=== PATIENT | female | born 1970 | race African-American/Black ===

== ENCOUNTER 2017-03-22 09:02 | Emergency (ER) | payer SELFPAY ==
[~2017-03-22 09:02] MED LIST: ISOVUE-370 76%-LOCM 1 ML ONE
[2017-03-22 09:44] LABS: #Basophils 0.2 thou/uL (0.0-0.2); #Eosinphils 0.6 thou/uL (0.0-0.7); #Lymphocytes 0.9 thou/uL (1.20-3.40); #Monocytes 0.5 thou/uL (0.11-0.59); #Neutrophils 6.4 thou/uL (1.40-6.50); %Basophils 1.8 % (0.0-1.0); %Eosinophils 6.6 % (0.0-10.0); %Lymphocytes 10.6 % (21.0-51.0); %Monocytes 6.1 % (0.0-10.0); %Neutrophils 74.9 % (42.0-75.0); Hemoglobin 11.8 g/dL (12.0-16.0); Mean Corpuscular HGB CONC 32.6 g/dL (32.0-36.0); Mean Corpuscular Hemoglobin 27.6 pg (27.0-31.0); Mean Corpuscular Volume 84.7 fl (81.0-99.0); Mean Platelet Volume 9.7 fL (7.4-10.4); Platelet Count 262 thou/uL (130-400); RBC Distribution Width 14.2 % (11.5-14.5); Red Blood Cell (RBC) Count 4.29 mill/uL (4.20-5.40); White Blood Cell (WBC) Count 8.5 thou/uL (4.8-10.8)
[2017-03-22 10:08] LABS: ALT (SGPT) 25 U/L (8-55); AST (SGOT) 47 U/L (5-34); Albumin 3.6 g/dL (3.5-5.0); Alkaline Phosphatase 79 U/L (40-150); Anion Gap 12 mmol/L (10-20); BUN (Urea Nitrogen) 6 mg/dL (7.0-18.7); Bilirubin, Total 0.4 mg/dL (0.2-1.2); Calc. Creatinine Clearance 0 mL/min (70-130); Calcium 9.5 mg/dL (7.8-10.44); Carbon Dioxide 25 mmol/L (22-29); Chloride 103 mmol/L (98-107); Estimated GFR-MDRD 80; Globulin 5.8 g/dL (2.4-3.5); Glucose 120 mg/dL (70-105); Potassium 3.7 mmol/L (3.5-5.1); Protein, Total 9.4 g/dL (6.0-8.3); Sodium 136 mmol/L (136-145)
[2017-03-22 10:13] LABS: CKMB 0.4 ng/mL (0-6.6); Troponin I Less than 0.010 ng/mL (< 0.028)
[2017-03-22] MEDS ORDERED: Albuterol Sulfate 2.5 mg/3 ml Neb ONE (10:36)
--- NOTE | 2017-03-22 11:13 | RAD ---
PORTABLE CHEST: HISTORY: Cough. COMPARISON: 02/22/16. FINDINGS: Heart size is upper normal. There is infiltrate seen in the left upper and mid lung and also in the right mid and lower lung. However, these infiltrates do not appear significantly changed from the exam. IMPRESSION: Persistent bilateral infiltrates not significantly changed. POS: [facility]
[2017-03-22] MEDS ORDERED: Azithromycin 500 MG in Sodium Chloride 0.9% 250 ML 250 ML IVPB SCH (11:30)
[2017-03-22] MEDS ORDERED: Cefepime 2 GM, Syringe 2.5 ML in Sterile Water 10 ML SLOW IVP SCH (11:45)
[2017-03-22] MEDS ORDERED: Cefepime 2 GM/10 ML SYR ONE ×2 (11:46→11:53)
[2017-03-22] MEDS ORDERED: CEFAZOLIN/Water 2 GM/20 ML SYRINGE ONE (11:54)
--- NOTE | 2017-03-22 12:52 | CT ---
CT CHEST WITH CONTRAST: TECHNIQUE: Multiple axial tomograms were obtained through the chest with IV enhancement. HISTORY: Cough. Flu-like symptoms. COMPARISON: Comparison is made to portable chest from earlier today which showed evidence of bilateral infiltrate s. FINDINGS: CT chest demonstrates diffuse patchy areas of ground-glass opacity throughout both lungs and is consi stent with diffusely bilateral inflammatory process. No effusion. No consolidation. The mediastinum shows adenopathy with enlarged mediastinal and hilar lymph nodes. A carinal lymph no de is measured at 2.3 cm. Paratracheal lymph node measures up to 1.6 cm. There are other lymph node s seen in the paratracheal and AP window regions. Images through the upper abdomen. Unremarkable. IMPRESSION: Diffuse bilateral alveolar infiltrates with associated mediastinal and hilar adenopathy. POS: [facility]
--- NOTE | 2017-04-26 17:33 | EKG ---
Test Reason : Blood Pressure : / mmHG Vent. Rate : 086 BPM Atrial Rate : 086 BPM P-R Int : 134 ms QRS Dur : 076 ms QT Int : 384 ms P-R-T Axes : 026 047 000 degrees QTc Int : 459 ms Normal sinus rhythm Possible Left atrial enlargement Septal infarct , age undetermined Abnormal ECG Confirmed by WILBER BARRIGA ([id number]), film or videotape editor MARY BROWNLEE ([id number] on 04/26/2017 5:33:02 PM Referred By: Confirmed By:WILBER BARRIGA
== END 2017-03-22 14:36 | disposition home or self-care (01) ==
LOC: ERS 09:02
DX: J18.9 Pneumonia, unspecified organism (principal)
CPT/HCPCS: 36415; 71045; 71260; 80053; 82553; 83880; 84484; 85025; 87040; 87804; 93005; 94640; 94760; 96374; 96375; A4216; J0456; J0692; J7050; J7611; J7620

== ENCOUNTER 2020-01-11 07:07 | Emergency (ER) | payer SELFPAY ==
[2020-01-11] MEDS ORDERED: HYDROcodone/Acetaminophen 10/325 mg Tablet ONE (07:20)
== END 2020-01-11 07:26 | disposition home or self-care (01) ==
LOC: ERS 07:07
DX: K04.7 Periapical abscess without sinus (principal); K02.9 Dental caries, unspecified; F17.220 Nicotine dependence, chewing tobacco, uncomplicated
CPT/HCPCS: 99282

== ENCOUNTER 2020-01-22 06:23 | Inpatient (IN) | payer SELFPAY ==
[2020-01-22] MEDS ORDERED: Acetaminophen 500 MG TAB ONE (06:43)
[2020-01-22] MEDS ORDERED: Piperacillin/Tazobactam 4.5 GM VIAL ONE (06:48)
[2020-01-22 07:16] LABS: Band 12 % (5-11); Eosinophils 1 % (0-10); Hemoglobin 12.5 g/dL (12.0-16.0); Lymphocytes 9 % (21-51); MDiff Complete? YES; Mean Corpuscular HGB CONC 33.2 g/dL (32.0-36.0); Mean Corpuscular Hemoglobin 27.3 pg (27.0-31.0); Mean Platelet Volume 10.2 fL (7.4-10.4); Monocytes 2 % (0-10); Neutrophil 75 % (42-75); Platelet Count 282 thou/uL (130-400); Promyelocytes 1 % (0-0); RBC Distribution Width 15.3 % (11.5-14.5); Red Blood Cell (RBC) Count 4.58 mill/uL (4.20-5.40); White Blood Cell (WBC) Count 26.2 thou/uL (4.8-10.8)
[2020-01-22 08:03] LABS: ALT (SGPT) 53 U/L (8-55); AST (SGOT) 72 U/L (5-34); Albumin 3.7 g/dL (3.5-5.0); Alkaline Phosphatase 93 U/L (40-110); Anion Gap 16 mmol/L (10-20); BUN (Urea Nitrogen) 6 mg/dL (7.0-18.7); Bilirubin, Total 0.5 mg/dL (0.2-1.2); Calc. Creatinine Clearance 0 mL/min (70-130); Carbon Dioxide 23 mmol/L (22-29); Chloride 102 mmol/L (98-107); Estimated GFR-MDRD 69; Globulin 6.4 g/dL (2.4-3.5); Glucose 111 mg/dL (70-105); Potassium 4.8 mmol/L (3.5-5.1); Protein, Total 10.1 g/dL (6.0-8.3); Sodium 136 mmol/L (136-145)
--- NOTE | 2020-01-22 08:04 | CT ---
CT ABDOMEN WITH CONTRAST CT PELVIS WITH CONTRAST: DATE: 01/22/2020 HISTORY: 49-year-old female with fever and upper abdominal pain COMPARISON: None TECHNIQUE: IV injection of iodinated contrast media: administered. Oral contrast media:Not administered FINDINGS: High-grade groundglass lesions throughout the visualized bases of right middle lobe, lingula, and low er lobes, plus consolidation in right lower lobe. No pleural effusion. No ascites, pneumoperitoneum, colonic diverticulitis, or small bowel dilation. Right renal upper pole cortical scar. No signs of pyelonephritis or hydronephrosis. Unremarkable liver, left kidney, abdominal aorta, pancreas, adrenals, spleen, and bladder. IMPRESSION: 1) extensive infiltrates throughout the visualized lower lung zones: Evidence for bilateral pneumonia . Recommend correlation with COVID-19 testing results. 2) no acute findings within abdominal cavity or pelvic cavity.
[2020-01-22 08:19] LABS: SARS-CoV-2 NAA Rapid Test Not Detected (NotDetected)
[2020-01-22 08:27] LABS: Bilirubin Negative (Negative); Blood, Urine Negative (Negative); Clarity Clear (Clear); Glucose, Urine (Dipstick) Normal (Negative); Ketone, Urine Negative (Negative); Leukocyte Negative Leu/uL (Negative); Nitrite Negative (Negative); Protein, Urine (Dipstick) Negative (Neg-Trace); Specific Gravity, Urine 1.023 (1.002-1.036); Urobilinogen Normal mg/dL (Less than 2); pH, Urine 7.5 (5.0-9.0)
--- NOTE | 2020-01-22 08:33 | RAD ---
RADIOGRAPH CHEST 1 VIEW: DATE: 01/22/2020 TIME: 6:46 AM HISTORY: 49-year-old female with fever COMPARISON: 03/22/2017 FINDINGS: Again noted are heterogeneously distributed groundglass infiltrates throughout the bilateral mid and lower lung zones, and left upper lung zone. Right apex is relatively spared. These infiltrates appear similar to prior study. Region of confluent alveolar infiltrate at right base. No pneumothorax . No cardiomegaly. IMPRESSION: Extensive bilateral infiltrates, somewhat similar to 03/22/2017.
--- NOTE | 2020-01-22 10:08 | PDOC.FPRHP ---
- History of Present Illness Chief Complaint: SOB History of Present Illness: 49 yo F with reported PMH of Hep B/Hep C here for generalized weakness, and worsening cough & SOB & fever. Symptoms started Friday. Measured home temp today of 102. Has been coughing clear sputum and wheezing. Former 2 pack year history with hx of prolonged secondhand exposure. Reported small emesis today with no blood, no diarrhea. Has not seen a doctor in years & not on any medications. No recent travel or known COVID exposure. Currently tachypneic but nonhypoxic on room air. ED Course: Pt received 3 L NS, 4.5 g Zosyn, 1 g Tylenol. Patient was hypotensive to 96/63. Placed on 2LNC 04/18 report of 88% O2 desaturation. After her last bolus patient BP came up to SBP 105 with MAP 70s. - Allergies/Adverse Reactions Allergies Allergy/AdvReac Type Severity Reaction Status Date / Time No Known Drug Allergies Allergy Verified 01/22/20 11:33 - History PMHx: Hep B, Hep C (per patient) PSHx: C section x1, gallbladder surgery FHx: Cardiac history Social:Former 2 pack year history, lifetime second hand smoke exposure - Review of Systems General: reports: fever/chills, weight/appetite/sleep changes Eyes: denies: eye pain, vision changes ENT: reports: nasal congestion, rhinorrhea Respiratory: reports: cough, congestion, shortness of breath, exercise intolerance Cardiovascular: denies: chest pain, palpitation, edema Genitourinary: denies: incontinence, dysuria Skin: denies: rashes, lesions Musculoskeletal: denies: pain, tenderness, swelling, arthritis/arthralgias Neurological: reports: weakness. denies: syncope Psychological: denies: anxiety, depression - Vital signs BP: 144/91, Pulse: 117, Resp: 22, Temp: 102.0 (Oral), Pain: 8, O2 sat: 94 on (Room Air), Time: 01/22/2020 06:26. Wt 100kg - Physical Exam Constitutional: NAD, awake, alert and oriented, well developed HEENT: normocephalic and atraumatic, PERRLA, EOMI, conjunctiva clear Neck: supple, FROM, trachea midline Chest: no-tender to palpation Heart: RRR, normal S1/S2 -Lungs: crackles with end expiratory wheezing most prominent in bilateral lower lobes Musculoskeletal: normal structure, normal tone, ROM grossly normal Neurological: no focal deficit, CN II-XII intact Skin: good turgor, capillary refill <2 seconds Psychiatric: normal mood and affect, good judgment and insight FMR H&P: Results - Labs Result Diagrams: 01/22/20 06:42 01/22/20 06:40 Lab results: WBC 26.2 thou/uL (4.8-10.8) H 01/22/20 06:42 Hgb 12.5 g/dL (12.0-16.0) 01/22/20 06:42 Hct 37.6 % (36.0-47.0) 01/22/20 06:42 MCV 82.0 fL (78.0-98.0) 01/22/20 06:42 Plt Count 282 thou/uL (130-400) 01/22/20 06:42 Band Neuts % (Manual) 12 % (5-11) H 01/22/20 06:42 Sodium 136 mmol/L (136-145) 01/22/20 06:40 Potassium 4.8 mmol/L (3.5-5.1) 01/22/20 06:40 Chloride 102 mmol/L (98-107) 01/22/20 06:40 Carbon Dioxide 23 mmol/L (22-29) 01/22/20 06:40 BUN 6 mg/dL (7.0-18.7) L 01/22/20 06:40 Creatinine 1.02 mg/dL (0.6-1.1) 01/22/20 06:40 Glucose 111 mg/dL (70-105) H 01/22/20 06:40 Lactic Acid 1.0 mmol/L (0.5-2.2) 01/22/20 06:42 Calcium 9.0 mg/dL (7.8-10.44) 01/22/20 06:40 Total Bilirubin 0.5 mg/dL (0.2-1.2) 01/22/20 06:40 AST 72 U/L (5-34) H 01/22/20 06:40 ALT 53 U/L (8-55) 01/22/20 06:40 Alkaline Phosphatase 93 U/L (40-110) 01/22/20 06:40 B-Natriuretic Peptide Less than 10.0 pg/mL (0-100) 01/22/20 06:40 Serum Total Protein 10.1 g/dL (6.0-8.3) H 01/22/20 06:40 Albumin 3.7 g/dL (3.5-5.0) 01/22/20 06:40 Urine Ketones Negative mg/dL (Negative) 01/22/20 08:15 Urine Blood Negative (Negative) 01/22/20 08:15 Urine Nitrite Negative (Negative) 01/22/20 08:15 Ur Leukocyte Esterase Negative Lali/uL (Negative) 01/22/20 08:15 FMR H&P: A/P - Plan #Acute hypoxic respiratory failure 2/2 PNA -Per EMS dropped to 88%, was non hypoxic on 2L -CXR shows bilateral infiltrates in the lower lung bibasilar zones, COVID neg in ER (rapid swab) -Will leave on COVID precuations due to clinical suspicion & imaging findings. -Obtain second swab to verify, will get COVID labs -Supportive care #Sepsis 2/2 PNA -s/p 30cc/kg with improved BPs -Bandemia 12%, tachycardic, tachypneic -s/p zosyn, will continue broad spectrum pending BCx #Reported hx of HepB/C -Negative testing in 2016 but will re-test PCP: None/CC Dvt ppx: 40mg BID lovenox GI ppx: pepcid Dispo: >2 midnights Admit: Tele/Inpatient FMR H&P: Upper Level - Plan Date/Time: 01/22/20 1006 I, [], have evaluated this patient and agree with findings/plan as outlined by product management intern resident. Pertinent changes/additions are listed here. Addendum - Attending - Attending Attestation Date/Time: 01/22/20 1935 I personally evaluated the patient and discussed the management with Dr. Antoine I agree with the History, Examination, Assessment and Plan documented above with any addition or exceptions noted below - 49 yo F with reported PMH of Hep B/Hep C here for generalized weakness, and worsening cough & SOB & fever. Symptoms started Friday. Measured home temp today of 102. Has been coughing clear sputum and wheezing. Former 2 pack year history with hx of prolonged secondhand exposure. Reported small emesis today with no blood, no diarrhea. Denies loss of taste or semll. Denies any ill contacts. Has not seen a doctor in years & not on any medications. No recent travel or known COVID exposure. PMH/PSH/Meds/SH reviewed and agree with resident's documentation. T102 VSS Exam repeated by me and agree with resident's findings. Labs: WBC=26.2, Diff=75N/12B. Lactic acid=1.0, Rapid COVID- negative, Flu-negative. CXR- bilateral infiltrates. A/P: 1) Sepsis secondary to pneumonia- possible viral versus CAP- continue abx, O2. Repeat COVID swab collected. Monitor resp status.
[2020-01-22] MEDS ORDERED: Ondansetron PF 4 MG/2 ML Vial IVP PRN (10:56)
[2020-01-22] MEDS ORDERED: Enoxaparin Sodium 40 MG/0.4 ML SYRINGE SC SCH (11:00)
[2020-01-22] MEDS ORDERED: predniSONE 20 MG TAB PO SCH (11:30)
[2020-01-22 11:32] VITALS: BMI 33.7
[2020-01-22 12:16] LABS: Hemoglobin A1c 5.5 % (4.0-6.0)
[2020-01-22] MEDS: cefTRIAXone\\ROCEPHIN 2 GM in Sodium Chloride 0.9% 100 ML IVPB SCH (12:17)
[2020-01-22 12:36] LABS: Hep B Surf Ag Non-Reactive S/CO (NonReactive); Hep C IgG Ab Non-Reactive (NonReactive); Hep C Index 0.13 S/CO (0-0.79)
[2020-01-22 13:27] LABS: HBSAB Concentration 1474.08 mIU/mL; Hep B Surf AB Reactive (NonReactive)
[2020-01-22] MEDS ORDERED: Iopamidol-370 76% 500 ML 1 ML ONE (14:23)
[2020-01-22] MEDS: Albuterol 200 PUFF (6.7GM INHALER) INH SCH ×2 (14:54→19:48)
[2020-01-22] MEDS: Azithromycin 500 MG in Sodium Chloride 0.9% 250 ML 250 ML IVPB SCH (14:54)
[2020-01-22] MEDS: Famotidine 20 MG TAB PO SCH (19:48)
[2020-01-22] MEDS: Calcium Carbonate 500 MG ChewTAB PO PRN (21:59)
[2020-01-23] MEDS: Benzonatate 100 MG CAP PO PRN ×2 (03:54→11:04)
[2020-01-23 04:50] LABS: #Basophils 0.1 thou/uL (0.0-0.2); #Lymphocytes 2.7 thou/uL (1.20-3.40); #Monocytes 0.8 thou/uL (0.11-0.59); #Neutrophils 12.2 thou/uL (1.40-6.50); %Basophils 0.5 % (0.0-1.0); %Eosinophils 0.2 % (0.0-10.0); %Lymphocytes 17.3 % (21.0-51.0); %Monocytes 5.1 % (0.0-10.0); %Neutrophils 76.9 % (42.0-75.0); Hemoglobin 10.6 g/dL (12.0-16.0); Mean Corpuscular HGB CONC 32.6 g/dL (32.0-36.0); Mean Corpuscular Hemoglobin 27.1 pg (27.0-31.0); Mean Platelet Volume 9.7 fL (7.4-10.4); Platelet Count 248 thou/uL (130-400); RBC Distribution Width 15.2 % (11.5-14.5); Red Blood Cell (RBC) Count 3.91 mill/uL (4.20-5.40); White Blood Cell (WBC) Count 15.8 thou/uL (4.8-10.8)
[2020-01-23 05:08] LABS: ALT (SGPT) 49 U/L (8-55); AST (SGOT) 43 U/L (5-34); Albumin 3.3 g/dL (3.5-5.0); Alkaline Phosphatase 75 U/L (40-110); Anion Gap 11 mmol/L (10-20); BUN (Urea Nitrogen) 6 mg/dL (7.0-18.7); Bilirubin, Total 0.3 mg/dL (0.2-1.2); Calc. Creatinine Clearance 141 mL/min (70-130); Carbon Dioxide 25 mmol/L (22-29); Chloride 108 mmol/L (98-107); Estimated GFR-MDRD Greater than 90; Globulin 4.8 g/dL (2.4-3.5); Glucose 107 mg/dL (70-105); Potassium 3.9 mmol/L (3.5-5.1); Protein, Total 8.1 g/dL (6.0-8.3); Sodium 140 mmol/L (136-145)
[2020-01-23] MEDS: Albuterol 200 PUFF (6.7GM INHALER) INH SCH ×4 (07:16→18:06)
[2020-01-23 07:57] LABS: Amphetamine Not Detected (NotDetected); Barbiturates Screen Not Detected (NotDetected); Benzodiazepine Screen Not Detected (NotDetected); Cocaine Metabolite Screen Detected (NotDetected); Medtox Control Line Valid? VALID (VALID); Medtox Reader # READER 4; Methadone Not Detected (NotDetected); Methamphetamine Not Detected (NotDetected); Opiate Screen Not Detected (NotDetected); Oxycodone Screen Not Detected (NotDetected); Phencyclidine (PCP) Not Detected (NotDetected); THC/Cannabinoid Screen Not Detected (NotDetected); Tricyclic Screen Not Detected (NotDetected)
[2020-01-23] MEDS: predniSONE 20 MG TAB PO SCH (08:57)
[2020-01-23] MEDS: Famotidine 20 MG TAB PO SCH ×2 (08:57→20:55)
[2020-01-23] MEDS ORDERED: Morphine 2 MG/ML VIAL SLOW IVP PRN (10:16)
--- NOTE | 2020-01-23 10:23 | PDOC.FM ---
- Subjective Subjective: Pt reports breathing much improved. Feeling better. No other complaints or concerns. - Objective Vital Signs & Weight: Vital Signs (12 hours) Temp Pulse Resp BP Pulse Ox 01/23/20 09:04 97.8 F 79 24 H 131/72 98 01/23/20 03:45 97.8 F 79 28 H 137/90 99 01/23/20 00:35 97.7 F 75 20 134/63 98 Weight Weight 100.698 kg I&O: 01/22/20 01/23/20 01/24/20 06:59 06:59 06:59 Intake Total 2046 Output Total 2180 Balance -134 Result Diagrams: 01/23/20 04:33 01/23/20 04:33 Phys Exam - Physical Examination Constitutional: NAD HEENT: PERRLA, moist MMs Neck: full ROM breathing easy on nasal cannula Cardiovascular: RRR, no significant murmur Gastrointestinal: soft, no distention Musculoskeletal: pulses present Neurological: non-focal, moves all 4 limbs Psychiatric: normal affect, A&O x 3 Dx/Plan - Plan Plan: #Acute hypoxic respiratory failure 2/2 PNA vs. COPD exacerbation -Improved on 1.5L NC -CXR shows bilateral infiltrates in the lower lung bibasilar zones, COVID neg in ER (rapid swab) -Will leave on COVID precuations due to clinical suspicion & imaging findings. -Pending second COVID swab -Prednisone for 5 day course -Supportive care, antibiotics, pending BCx #Sepsis 2/2 PNA -Improved -Continue rocephin & azithromycin, pending cultures #Reported hx of HepB/C -Negative testing in 2016 but will re-test PCP: None/[facility] Dvt ppx: 40mg BID lovenox GI ppx: pepcid Dispo: >2 midnights Admit: Tele/Inpatient Addendum - Attending - Attending Attestation Date/Time: 01/23/20 1433 I personally evaluated the patient and discussed the management with Dr. Antoine I agree with the History, Examination, Assessment and Plan documented above with any addition or exceptions noted below - Patient without complaints. Feeling much better. SOB resolved. Still having cough. Afebrile VSS. A/P: 1) Sepsis secondary to pneumonia- improved. Continue abx. Awaiting repeat COVID. Suspect C AP. continue inhalers and prednisone
[2020-01-23] MEDS ORDERED: cefTRIAXone\\ROCEPHIN 2 GM in Sodium Chloride 0.9% 100 ML IVPB SCH (11:00)
[2020-01-23] MEDS: cefTRIAXone\\ROCEPHIN 2 GM in Sodium Chloride 0.9% 100 ML IVPB SCH (11:04)
[2020-01-23] MEDS ORDERED: FLU VACC QS2020-21(6MOS UP)/PF 60 MCG/0.5 ML SYRINGE IM ONE (11:45)
[2020-01-23] MEDS: Azithromycin 500 MG in Sodium Chloride 0.9% 250 ML 250 ML IVPB SCH (11:58)
[2020-01-23 18:16] LABS: SARS-CoV-2 MS2 Positive; SARS-CoV-2 N Gene Negative; SARS-CoV-2 S Gene Negative; SARS-CoV-2 by NAA Not Detected (NotDetected); SARS-CoV-2 orf1ab Negative
[2020-01-24] MEDS ORDERED: Metamucil PACK PO SCH (02:15)
[2020-01-24] MEDS: Calcium Carbonate 500 MG ChewTAB PO PRN (03:23)
[2020-01-24] MEDS: Albuterol 200 PUFF (6.7GM INHALER) INH SCH ×2 (06:01→12:09)
[2020-01-24 07:16] LABS: #Basophils 0.1 thou/uL (0.0-0.2); #Eosinphils 0.3 thou/uL (0.0-0.7); #Lymphocytes 4.7 thou/uL (1.20-3.40); #Monocytes 0.9 thou/uL (0.11-0.59); #Neutrophils 11.5 thou/uL (1.40-6.50); %Basophils 0.6 % (0.0-1.0); %Eosinophils 1.6 % (0.0-10.0); %Lymphocytes 26.8 % (21.0-51.0); Hemoglobin 10.5 g/dL (12.0-16.0); Mean Corpuscular HGB CONC 33.2 g/dL (32.0-36.0); Mean Corpuscular Hemoglobin 27.6 pg (27.0-31.0); Mean Corpuscular Volume 83.1 fL (78.0-98.0); Mean Platelet Volume 9.8 fL (7.4-10.4); Platelet Count 275 thou/uL (130-400); RBC Distribution Width 15.1 % (11.5-14.5); Red Blood Cell (RBC) Count 3.82 mill/uL (4.20-5.40); White Blood Cell (WBC) Count 17.4 thou/uL (4.8-10.8)
[2020-01-24 07:33] LABS: ALT (SGPT) 42 U/L (8-55); AST (SGOT) 30 U/L (5-34); Albumin 3.3 g/dL (3.5-5.0); Alkaline Phosphatase 73 U/L (40-110); Anion Gap 12 mmol/L (10-20); BUN (Urea Nitrogen) 10 mg/dL (7.0-18.7); Bilirubin, Total 0.2 mg/dL (0.2-1.2); Calc. Creatinine Clearance 127 mL/min (70-130); Calcium 9.2 mg/dL (7.8-10.44); Carbon Dioxide 28 mmol/L (22-29); Chloride 106 mmol/L (98-107); Estimated GFR-MDRD 87; Globulin 4.8 g/dL (2.4-3.5); Glucose 92 mg/dL (70-105); Potassium 3.6 mmol/L (3.5-5.1); Protein, Total 8.1 g/dL (6.0-8.3); Sodium 142 mmol/L (136-145)
--- NOTE | 2020-01-24 08:59 | PDOC.FM ---
- Subjective Subjective: Patient reports that she is feeling well. She feels back to normal for her. breathing well. - Objective Vital Signs & Weight: Vital Signs (12 hours) Temp Pulse Resp BP Pulse Ox 01/24/20 03:25 97.5 F L 69 18 137/82 97 01/23/20 23:37 97.6 F 73 18 137/82 99 Weight Weight 100.698 kg I&O: 01/23/20 01/24/20 01/25/20 06:59 06:59 06:59 Intake Total 2046 2250 Output Total 2180 950 Balance -134 1300 Result Diagrams: 01/24/20 06:34 01/24/20 06:34 Phys Exam - Physical Examination Constitutional: NAD Respiratory: no wheezing, no rales, no rhonchi, clear to auscultation bilateral Cardiovascular: RRR, no significant murmur, no rub Gastrointestinal: soft, non-tender, no distention, positive bowel sounds Dx/Plan - Plan Plan: Acute hypoxic respiratory failure 2/2 PNA vs. COPD exacerbation -Improved on 1.5L NC -CXR shows bilateral infiltrates in the lower lung bibasilar zones, COVID neg with rapid and regular COVID swabs -Prednisone for 5 day course -Supportive care, antibiotics Sepsis 2/2 PNA -Improved -Could be 2/2 viral pneumonia given low procal - Continue abx outpatient-Amoxicillin and azithromycin - BCx negative Reported hx of HepB/C -Negative testing in 2016 and at this visit PCP: None/CC Dvt ppx: 40mg BID lovenox GI ppx: pepcid Dispo: >2 midnights Admit: Tele/Inpatient Addendum - Attending - Attending Attestation Date/Time: 01/24/20 1124 I personally evaluated the patient and discussed the management with Dr. Velazco. I agree with the History, Examination, Assessment and Plan documented above with any addition or exceptions noted below.
[2020-01-24] MEDS: Famotidine 20 MG TAB PO SCH (09:32)
[2020-01-24] MEDS: predniSONE 20 MG TAB PO SCH (09:32)
[2020-01-24 11:26] VITALS: BP 145/83; TEMP 97.7
[2020-01-24] MEDS: cefTRIAXone\\ROCEPHIN 2 GM in Sodium Chloride 0.9% 100 ML IVPB SCH (12:10)
[2020-01-24] MEDS: Benzonatate 100 MG CAP PO PRN (12:10)
--- NOTE | 2020-01-24 21:27 | DIS ---
DATE OF ADMISSION: 01/22/2020 DATE OF DISCHARGE: 01/24/2020 RESIDENT: Nikita Velazco MD ADMITTING ATTENDING: Sylvia Orta MD DISCHARGE ATTENDING: Dr. Chang. PROCEDURES: Chest X Ray relatively unchanged from study in 2018 showing diffuse bilateral opacities. DISCHARGE MEDICATIONS: 1. Prednisone 40 mg x2 days p.o. daily. 2. Spiriva Respimat inhaler 2 puffs daily. 3. Albuterol sulfate 2 puffs q.4 hours p.r.n. for shortness of breath, wheezing. HISTORY OF PRESENT ILLNESS/HOSPITAL COURSE: Pavithra Bangura is a 49-year-old female, who presented to the hospital due to shortness of breath. The patient does not see primary care provider and has limited knowledge of medical problems. The patient was hypotensive and febrile and was started on sepsis protocol. She received vancomycin and Zosyn. Throughout the hospital stay, the patient's vital signs stabilized and breathing improved. The patient was continued to be treated for community-acquired pneumonia. Procalcitonin trended down from 0.05 to 0.02. On the day of discharge, the patient was on room air, breathing comfortably, and reports that she is back at baseline. The patient was not discharged on antibiotics given negative procalcitonin. The patient was discharged on medications for presumed COPD. Of note, the patient's urine drug screen was positive for cocaine. The patient has a significant history of cocaine abuse and may be contributing to her lung disease. DISPOSITION: Stable. DISCHARGE INSTRUCTIONS: 1. Location: Home. 2. Diet: Regular. 3. Activity: As tolerated. 4. Followup: Please follow up with PCP, Flower Cooper, at appointment on 01/25 at 3 p.m. The patient's hospital stay and discharge complicated by lack of insurance. Job ID: [id number] [facility]
== END 2020-01-24 12:32 | disposition home or self-care (01) | DRG 871 ==
LOC: ERS 06:23 → 2SW 09:20 → T4-A 01-23 18:42
PROVIDERS: ADMIT Family Medicine; ATTEND Family Medicine
DX: A41.89 Other specified sepsis (principal); J96.01 Acute respiratory failure with hypoxia; J12.9 Viral pneumonia, unspecified; B19.10 Unspecified viral hepatitis B without hepatic coma; Z20.828 Contact with and (suspected) exposure to other viral communicable diseases; B19.20 Unspecified viral hepatitis C without hepatic coma; Z98.51 Tubal ligation status; Z87.891 Personal history of nicotine dependence
CPT/HCPCS: 36415; 71045; 74177; 80053; 80306; 81003; 83036; 83605; 83880; 84145; 84484; 85025; 86706; 86803; 87040; 87086; 87340; 87635; 87804; 93005; 96374; J0456; J0696; J1650; J2543; J3490; J7050; J7512; Q9967; U0002; U0003